=== PATIENT | female | born 1965 | race American Indian/Alaskan Native ===

== ENCOUNTER 2021-02-14 10:27 | Outpatient (CLI) | payer OTHER ==
--- NOTE | 2021-02-14 12:14 | XRay Report ---
Cervical spine 4 views INDICATION: Neck pain. History of breast cancer IMPRESSION: Mild multiple level discogenic and uncovertebral arthropathy present within the upper and mid cervical spine. There is questionable increased sclerosis identified involving C5 and C6 vertebr al bodies. Recommend dedicated CT of the cervical spine for further evaluation. Signer Name: Rocky Salmeron MD Signed: 02/14/2021 12:09 PM Workstation Name: [id number]
--- NOTE | 2021-02-14 12:15 | XRay Report ---
Lumbar spine 3 views INDICATION: Low back pain. IMPRESSION: Subtle but suspicious increase sclerotic change within the T11 vertebral body especially with a history of prior breast cancer. There is mild multilevel discogenic and facet arthropathy part icularly at L5-S1 where there is mild bilateral neural foraminal narrowing. Signer Name: Rocky Salmeron MD Signed: 02/14/2021 12:10 PM Workstation Name: [id number]
== END 2021-02-14 10:28 | disposition home or self-care (01) ==
LOC: XRAY 10:27
PROVIDERS: ATTEND Internal Medicine
DX: M47.817 Spondylosis without myelopathy or radiculopathy, lumbosacral region (principal); M48.061 Spinal stenosis, lumbar region without neurogenic claudication; M47.812 Spondylosis without myelopathy or radiculopathy, cervical region
CPT/HCPCS: 72040; 72100